=== PATIENT | male | born 1980 | race Two or more races ===

== ENCOUNTER 2021-01-06 12:47 | Emergency (ER) | payer OTHER ==
[~2021-01-06] VITALS: Ht 167.6 cm; Wt 68.0 kg
--- NOTE | 2021-01-06 13:33 | NUR ---
swab collected and sent to lab.
== END 2021-01-06 14:00 ==
LOC: ER 12:50
DX: Z20.822 Contact with and (suspected) exposure to COVID-19 (principal); Z02.89 Encounter for other administrative examinations
CPT/HCPCS: 87426; 99283; C9803